=== PATIENT | male | born 1980 | race African-American/Black ===

== ENCOUNTER 2020-11-26 21:04 | Emergency (ER) | payer BC ==
[2020-11-26 21:41] LABS: #Basophils 0.1 10x3/uL (0.0-0.2); #Monocytes 0.6 10x3/uL (0.0-1.1); #Neutrophils 7.2 10x3/uL (1.5-8.4); %Basophils 0.6 % (0.0-2.0); %Eosinophils 0.3 % (0.0-6.0); %Lymphocytes 20.1 % (18.0-47.0); %Monocytes 6.1 % (0.0-10.0); %Neutrophils 72.6 % (40.0-75.0); Hemoglobin 15.2 g/dL (13.5-17.5); Mean Corpuscular HGB CONC 34.8 g/dL (32.0-36.0); Mean Corpuscular Hemoglobin 28.3 pg (27.0-33.0); Mean Corpuscular Volume 81.2 fl (81.2-95.1); Mean Platelet Volume 12.3 fl (7.4-10.4); Platelet Count 268 10x3/uL (150-450); RBC Distribution Width 12.5 % (11.5-14.5); Red Blood Cell (RBC) Count 5.38 10x6/uL (4.32-5.72); White Blood Cell (WBC) Count 9.9 10x3/uL (3.5-10.5)
[2020-11-26 21:49] LABS: Bilirubin Neg (Negative); Blood, Urine Negative (Negative); Clarity Clear (Clear); Glucose, Urine (Dipstick) >=1000 mg/dL (Negative); Ketone, Urine 150 mg/dL (Negative); Leukocyte Negative (Negative); Nitrite Negative (Negative); Protein, Urine (Dipstick) Negative (Neg-Trace); Urobilinogen Normal mg/dL (Less than 2)
[2020-11-26 21:55] LABS: ALT (SGPT) 33 U/L (8-55); AST (SGOT) 18 U/L (5-34); Albumin 4.6 g/dL (3.5-5.0); Alkaline Phosphatase 92 U/L (40-110); Anion Gap 24 mmol/L (10-20); BUN (Urea Nitrogen) 18 mg/dL (8.9-20.6); Bilirubin, Total 0.5 mg/dL (0.2-1.2); Calc. Creatinine Clearance 0 mL/min (70-130); Calcium 9.5 mg/dL (7.8-10.44); Carbon Dioxide 15 mmol/L (22-29); Chloride 91 mmol/L (98-107); Globulin 3.1 g/dL (2.4-3.5); Potassium 4.7 mmol/L (3.5-5.1); Protein, Total 7.7 g/dL (6.0-8.3); Sodium 125 mmol/L (136-145)
[2020-11-26 21:59] LABS: Glucose 670 mg/dL (70-105)
[2020-11-26] MEDS ORDERED: INSULIN REGULAR IN 0.9 % NACL 100 UNIT/100 ML BAG ONE (22:07)
[2020-11-26] MEDS ORDERED: NS 0.9% w/ 40 MEQ KCL 1,000 ML IV ONE (22:07)
[2020-11-26 22:09] LABS: Actual Bicarbonate (HCO3a) 13.3 mEq/L (22-28); Base Excess (BEa) -11.8 mEq/L (-2.0 to +3.0); CO2 Tension 28.6 mmHg (35.0-45.0); Calcium, Ionized (arterial) 1.29 mmol/L (1.12-1.30); Carboxyhemoglobin (COHb) 0.7 gm% (0.0-3.0); Hemoglobin (Hb) 15.2 g/dL (14.0-18.0); O2 Tension (PaO2), arterial 90.4 mmHg (80.0-100.0); Potassium - ABG Lab 4.1 mmol/L (3.70-5.30); Puncture Site RRA; pH, Arterial 7.28 (7.35-7.45)
[2020-11-26 23:31] LABS: SARS-CoV-2 NAA Rapid Test Not Detected (NotDetected)
[2020-11-26] MEDS ORDERED: Ondansetron PF 4 MG/2 ML Vial IVP PRN (23:35)
[2020-11-26] MEDS ORDERED: Calcium Carbonate 500 MG ChewTAB PO PRN (23:35)
[2020-11-26] MEDS ORDERED: Senokot S 8.6-50 MG TAB PO PRN (23:35)
[2020-11-26] MEDS ORDERED: Acetaminophen 325 MG TAB PO PRN (23:35)
[2020-11-26] MEDS ORDERED: Zolpidem Tartrate 5 MG TAB PO PRN (23:35)
[2020-11-26] MEDS ORDERED: Guaifenesin DM 100-10/5 ML UDCUP PO PRN (23:35)
[2020-11-26] MEDS ORDERED: HUMULIN R 100 UNITS in Sodium Chloride 0.9% 100 ML IVPB SCH (23:45)
[2020-11-26] MEDS ORDERED: NS 0.9% w/ 20 MEQ KCL 1,000 ML/1,000 ML BAG IV SCH (23:45)
[2020-11-26] MEDS ORDERED: Electrolyte Replacement Protocol 1 EACH FS SCH (23:45)
[2020-11-26] MEDS ORDERED: Nicotine 21 MG PATCH TD SCH (23:45)
[2020-11-26] MEDS ORDERED: D5 1/2 NS w/20 mEq KCL 1,000 ML IV SCH (23:45)
[2020-11-27 01:51] LABS: Anion Gap 18 mmol/L (10-20); BUN (Urea Nitrogen) 17 mg/dL (8.9-20.6); Calc. Creatinine Clearance 0 mL/min (70-130); Calcium 8.3 mg/dL (7.8-10.44); Carbon Dioxide 17 mmol/L (22-29); Chloride 104 mmol/L (98-107); Glucose 224 mg/dL (70-105); Phosphorus 2.1 mg/dL (2.3-4.7); Sodium 135 mmol/L (136-145)
[2020-11-27] MEDS ORDERED: Lisinopril 2.5 MG TAB PO SCH (09:00)
[2020-11-27] MEDS ORDERED: Famotidine/PF 20 mg/2ml Vial SLOW IVP SCH (09:00)
[2020-11-27] MEDS ORDERED: Enoxaparin Sodium 40 MG/0.4 ML SYRINGE SC SCH (09:00)
[2020-11-27] MEDS ORDERED: Amlodipine 10 MG TAB PO SCH (09:00)
[2020-11-27 12:30] LABS: Hemoglobin A1c 12.7 % (4.0-6.0)
[2020-11-27] MEDS ORDERED: Atorvastatin Calcium 10 MG TAB PO SCH (21:00)
== END 2020-11-26 23:21 | disposition admitted as inpatient to this hospital (09) ==
LOC: CSHERS 21:04
DX: E11.10 Type 2 diabetes mellitus with ketoacidosis without coma (principal); I10 Essential (primary) hypertension; F17.210 Nicotine dependence, cigarettes, uncomplicated; Z79.899 Other long term (current) drug therapy
CPT/HCPCS: 36415; 36416; 36600; 80048; 80053; 81003; 82010; 82805; 83036; 83605; 83735; 84100; 84484; 85025; 87040; 87086; 93005; 96365; 96366; J3480; U0002

== ENCOUNTER 2020-11-29 16:39 | Emergency (ER) | payer BC ==
[2020-11-29 17:33] LABS: #Basophils 0.1 10x3/uL (0.0-0.2); #Eosinphils 0.1 10x3/uL (0.0-0.5); #Monocytes 0.4 10x3/uL (0.0-1.1); #Neutrophils 4.9 10x3/uL (1.5-8.4); %Basophils 0.8 % (0.0-2.0); %Eosinophils 0.8 % (0.0-6.0); %Lymphocytes 17.7 % (18.0-47.0); %Monocytes 6.3 % (0.0-10.0); %Neutrophils 74.1 % (40.0-75.0); Hemoglobin 13.3 g/dL (13.5-17.5); Mean Corpuscular HGB CONC 34.7 g/dL (32.0-36.0); Mean Corpuscular Hemoglobin 28.3 pg (27.0-33.0); Mean Corpuscular Volume 81.5 fl (81.2-95.1); Mean Platelet Volume 12.4 fl (7.4-10.4); Platelet Count 235 10x3/uL (150-450); RBC Distribution Width 12.3 % (11.5-14.5); White Blood Cell (WBC) Count 6.6 10x3/uL (3.5-10.5)
[2020-11-29 17:37] LABS: Actual Bicarbonate (HCO3v) 25 mEq/L (22-28); Base Excess -0.3 mEq/L (-2.0 to +3.0); Calcium, Ionized (venous) 1.16 mmol/L (1.16-1.32); Chloride (VBG) 94 mmol/L (98-106); Hemoglobin (Hb) 14.2 g/dL (13.2-17.3); Potassium (VBG) 4.14 mmol/L (3.70-5.30); Puncture Site Other Site; RapidComm Collect By CBN; pH (venous) 7.39 (7.32-7.43)
[2020-11-29 17:48] LABS: ALT (SGPT) 28 U/L (8-55); AST (SGOT) 22 U/L (5-34); Albumin 3.9 g/dL (3.5-5.0); Alkaline Phosphatase 69 U/L (40-110); Anion Gap 13 mmol/L (10-20); BUN (Urea Nitrogen) 9 mg/dL (8.9-20.6); Bilirubin, Total 0.5 mg/dL (0.2-1.2); Calc. Creatinine Clearance 0 mL/min (70-130); Calcium 9.1 mg/dL (7.8-10.44); Carbon Dioxide 27 mmol/L (22-29); Chloride 94 mmol/L (98-107); Globulin 2.7 g/dL (2.4-3.5); Glucose 474 mg/dL (70-105); Potassium 4.1 mmol/L (3.5-5.1); Protein, Total 6.6 g/dL (6.0-8.3); Sodium 130 mmol/L (136-145)
[2020-11-29] MEDS ORDERED: Insulin Regular 300 UNITS/3 ML VIAL ONE (18:44)
[2020-11-29 18:56] LABS: Bilirubin Neg (Negative); Blood, Urine Negative (Negative); Clarity Clear (Clear); Glucose, Urine (Dipstick) >=1000 mg/dL (Negative); Ketone, Urine 50 mg/dL (Negative); Leukocyte Negative (Negative); Nitrite Negative (Negative); Protein, Urine (Dipstick) Negative (Neg-Trace); Specific Gravity, Urine 1.005 (1.002-1.036); Urobilinogen Normal mg/dL (Less than 2)
== END 2020-11-29 19:39 | disposition home or self-care (01) ==
LOC: CSHERS 16:39
DX: E11.65 Type 2 diabetes mellitus with hyperglycemia (principal); E11.10 Type 2 diabetes mellitus with ketoacidosis without coma; I10 Essential (primary) hypertension; E78.5 Hyperlipidemia, unspecified; F17.210 Nicotine dependence, cigarettes, uncomplicated; Z79.899 Other long term (current) drug therapy
CPT/HCPCS: 36416; 80053; 81003; 82010; 82805; 85025; 96374; J1815